=== PATIENT | female | born 1980 | race Two or more races ===

== ENCOUNTER 2020-11-07 10:55 | Emergency (ER) | payer OTHER ==
[~2020-11-07] VITALS: Ht 165.1 cm; Wt 99.8 kg
--- NOTE | 2020-11-07 11:13 | NUR ---
FLUSHING BOTH EYES USING CATALINA LENS WITH NS
[2020-11-07] MEDS ORDERED: FLUORESCEIN SODIUM OPHTH 1 EA STRIP ONE (12:33)
--- NOTE | 2020-11-07 12:37 | NUR ---
DR BUTT TESTED PH FOR BOTH EYES. BOTH PH 7.0
[2020-11-07] MEDS ORDERED: POLY10DR3 EACHEYE (12:53)
--- NOTE | 2020-11-07 13:06 | NUR ---
Patient discharged to home in stable condition. Written and verbal after care instructions given. Patient verbalizes understanding of instruction.
[2020-11-07 13:07] VITALS: BP 138/78
== END 2020-11-07 13:07 | disposition home or self-care (01) ==
LOC: ER 11:01
DX: H10.213 Acute toxic conjunctivitis, bilateral (principal); Z79.899 Other long term (current) drug therapy
CPT/HCPCS: 99284; J7030 ×2